=== PATIENT | male | born 1990 | race Two or more races ===

== ENCOUNTER 2021-09-01 01:47 | Emergency (ER) | payer OTHER ==
[~2021-09-01] VITALS: Ht 180.3 cm; Wt 131.5 kg
[2021-09-01] MEDS ORDERED: NORFLEX100MG PO (04:52)
[2021-09-01] MEDS ORDERED: KETO10TA2 PO (04:52)
[2021-09-01] MEDS ORDERED: MEDROLPACK PO (05:16)
== END 2021-09-01 05:27 | disposition home or self-care (01) ==
LOC: ER 01:47
DX: M25.511 Pain in right shoulder (principal)